=== PATIENT | male | born 1940 | race African-American/Black ===

== ENCOUNTER → 2018-10-05 | Outpatient (CLI) | payer MEDICARE ==
[~2018-10-05] MED LIST: ASPIRIN81 MG PO; ATORVASTATIN CA20 MG PO; CLOPIDOGREL75 MG PO; IRON PO; METOPROLOL SUCC25 MG PO; PANTOPRAZOLE SO40 MG PO
[2018-10-05 17:27] LABS: BASOPHILS # (AUTO) 0.1 (0.0-0.1); BASOPHILS % 0.5 % (0.0-1.0); EOSINOPHILS # (AUTO) 0.4 (0.0-0.4); EOSINOPHILS % 2.9 % (0.0-6.0); HEMATOCRIT 31.5 % (38.2-49.6); HEMOGLOBIN 9.7 g/dL (14.0-18.0); LYMPHOCYTES # (AUTO) 3.5 (1.0-3.2); MEAN CORPUSCULAR HEMOGLOBIN 28.8 pg (28-32); MEAN CORPUSCULAR HGB CONC 30.8 g/dL (31-35); MEAN CORPUSCULAR VOLUME 93.5 fL (81-99); MONOCYTES % 8.1 % (4.4-11.3); NEUTROPHILS # (AUTO) 7.1 (2.1-6.9); NEUTROPHILS % 59.2 % (38.7-80.0); PLATELET COUNT 499 x10e3/uL (140-360); RED BLOOD COUNT 3.37 x10e6/uL (4.3-5.7); RED CELL DISTRIBUTION WIDTH 15.2 % (11.7-14.4)
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
== END ==
LOC: RAD 05:00 → EDSTATUS 10-07 07:30
PROVIDERS: ATTEND Urology
DX: Z01.818 Encounter for other preprocedural examination (principal); Z53.8 Procedure and treatment not carried out for other reasons
CPT/HCPCS: 36415; 71046; 85025

== ENCOUNTER → 2018-11-06 | Day surgery (SDC) | payer MEDICARE ==
[~2018-11-06] MED LIST changes: +CEFTRIAXONE SOD 1 GM/NS 50 ML 50 ML IV ONE; +DEXAMETHASONE SOD PHOS INJ 4 MG/ML VIAL ONE; +HYDRALAZINE HCL 20 MG/ML VIAL ONE; +IOPAMIDOL 610MG/1ML 300 MG/ML VIAL IV ONE; +LIDOCAINE HCL 2% LOCAL INJ 5 ML SDV VIAL INJ ONE; +ONDANSETRON HCL INJ 2MG/ML 2ML 2 MG/ML VIAL ONE; +PROPOFOL IV EMULSION 10 MG/ML 20 ML VIAL ONE; +SEVOFLURANE INHAL SOLN 250 ML PEN BTL ONE
--- OUTSIDE RECORDS SUMMARY | 2018-11-06 05:50 | XMS REPORT | Clinical Summary ---
Author Author [facility] Organization [facility] Address Unknown Phone Unavailable Care Team Providers Care Aids Nurse Name Role Phone Mumtaz Andre MD PCP Allergies No Known Allergies Medications End Date Status Medication Sig Dispensed Refills Start Date Active aspirin (ECOTRIN) 81 MG Take 325 mg 0 enteric coated tablet by mouth daily. Active Problems Problem Noted Date Coronary artery disease 08/21/2017 Coronary artery disease involving [place] coronary artery of [place] heart 08/21/2017 without angina pectoris Overview: Added automatically from request for surgery [id number] Family History Medical History Relation Name Comments Stroke Father Stroke Mother Relation Name Status Comments Father Mother Social History Date Tobacco Use Types Packs/Day Years Used Quit: 08/21/2017 Former Smoker Cigarettes Smokeless Tobacco: Never Used Drinks/Week oz/Week Comments Alcohol Use No Sex Assigned at Date Recorded Not on file Industry Job Start Date Occupation Not on file Not on file Not on file Travel End Travel History Travel Start No recent travel history available. Last Filed Vital Signs Not on file Plan of Treatment Health Maintenance Due Date Last Done Comments SHINGLES VACCINES (#1) 08/29/1989 65+ PNEUMOCOCCAL VACCINE 08/29/2004 (1 of 2 - PCV13) INFLUENZA VACCINE 09/10/2018 Implants Device Identifier Shelf Expiration Date Model / Serial / Lot Implanted Type Area Manufactur er OF 1500L / / Shunt Cor Axius Beating Hrt Long Surgical N/A: N/A [employer] 1.5x20.25mm - [id number] Implantabl Implanted: 08/29/2017 at [facility] (Quantity not on file) or Shunt Extenders OF 2000L / / Shunt Cor Axius Hrt Beating Surgical N/A: N/A [employer] Accessories Long [id number] - Implantabl [id number] Shunts Implanted: 08/29/2017 at [facility] or [facility] (Quantity not on file) Extenders 04/11/2019 [id number] / / Clip Ligating Titanium Medium - Surgical N/A: Chest VESOCCLUDE [id number] Implants; MEDICAL Implanted: Qty: 1 on 08/26/2017 by [employer]; Braulio Hutton Jr., [place] [facility] [facility] [place] Surgical Wires 04/11/2019 [id number] / / Clip Ligating Titanium Medium - Surgical Right: Leg VESOCCLUDE [id number] Implants; MEDICAL Implanted: Qty: 1 on 08/26/2017 by [employer]; Braulio Hutton Jr., [place] [facility]; [facility] Surgical Wires 06/11/2019 [id number] / / Clip Ligating Wide Titanium Small - Surgical N/A: Chest SYMMETRY [id number] Implants; SURGICAL Implanted: Qty: 1 on 08/26/2017 by [employer]; Braulio Hutton Jr., [place] [facility] [place]; [facility] Surgical Wires 06/11/2019 [id number] / / Clip Ligating Wide Titanium Small - Surgical Left: Leg SYMMETRY [id number] Implants; SURGICAL Implanted: Qty: 1 on 08/26/2017 by [employer]; Braulio Hutton Jr., [place] [facility]; [facility] Surgical Wires [id number] / / Marker Grft U-Shaped Styl Rosie Ltxf Surgical N/A: N/A BINU Strl - [id number] Implants; Implanted: 08/29/[address] [facility] (Quantity not on file) Extenders; Surgical Wires [id number] / / Clip Ligating Titanium Medium - Surgical N/A: N/A VESOCCLUDE [id number] Implants; MEDICAL Implanted: 08/29/[address] [facility] (Quantity not on file) Extenders; Surgical Wires [id number] / / Clip Ligating Titanium Medium - Surgical N/A: N/A VESOCCLUDE [id number] Implants; MEDICAL Implanted: 08/29/[address] [facility] (Quantity not on file) Extenders; Surgical Wires [id number] / / Clip Ligating Wide Titanium Small - Surgical N/A: N/A SYMMETRY [id number] Implants; SURGICAL Implanted: 08/29/[address] 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 Operations Manager Advance Directives, 08/21/2017 4:34 PM Living Will and Medical Power of Sr. Operations Manager Advance Directives, 08/21/2017 4:44 PM Living Will and Medical Power of Sr. Operations Manager
--- OUTSIDE RECORDS SUMMARY | 2018-11-06 05:50 | XMS REPORT ---
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 RANDOM (test code=CREATU) mg/dL CBC W/AUTO [id number] 12:18:00* Test Item Value Reference Range Comments WHITE BLOOD CELL (test code=WBC) 15.86 x10 3/uL 4.5-11.0 RED BLOOD CELL (test code=RBC) 2.84 x10 6/uL 4.00-5.60 HEMOGLOBIN (test code=HGB) 8.3 g/dL 12.5-16.9 HEMATOCRIT (test code=HCT) 26.0 % 37.5-50.7 MEAN CELL VOLUME (test code=MCV) 91.5 fL 81.0-99.0 MEAN CELL HGB (test code=MCH) 29.2 pg 27.0-33.0 MEAN CELL HGB CONCETRATION (test code=MCHC) 31.9 g/dL 33.0-37.0 RED CELL DISTRIBUTION WIDTH CV (test code=RDW) 15.0 % 11.5-14.5 RED CELL DISTRIBUTION WIDTH SD (test code=RDW-SD) 50.6 fL 37.0-54.0 PLATELET COUNT (test code=PLT) 316 x10 3/uL 150-400 MEAN PLATELET VOLUME (test code=MPV) 10.9 fL 7.0-9.0 MANUAL DIFF REQUIRED (test code=MDIFF) YES WBC [id number] 12:18:00* Test Item Value Reference Range Comments SEGMENTED NEUTROPHILS (test code=SEG) 89.9 % 37-69 LYMPHOCYTE (test code=LYMPH) 5.5 % 23-55 MONOCYTE (test code=MON) 4.6 % 0-10 ANISOCYTOSIS (test code=ANISO) 2+ TEAR DROP CELLS (test code=TEAR) SEEN OVALOCYTES (test code=OVAL) FEW PLATELET ESTIMATE (test code=PLTEST) Adequate THOUSAND ADEQUATE CBC W/AUTO [id number] 12:15:00* Test Item Value Reference Range Comments WHITE BLOOD CELL (test code=WBC) 15.86 x10 3/uL 4.5-11.0 RED BLOOD CELL (test code=RBC) 2.84 x10 6/uL 4.00-5.60 HEMOGLOBIN (test code=HGB) 8.3 g/dL 12.5-16.9 HEMATOCRIT (test code=HCT) 26.0 % 37.5-50.7 MEAN CELL VOLUME (test code=MCV) 91.5 fL 81.0-99.0 MEAN CELL HGB (test code=MCH) 29.2 pg 27.0-33.0 MEAN CELL HGB CONCETRATION (test code=MCHC) 31.9 g/dL 33.0-37.0 RED CELL DISTRIBUTION WIDTH CV (test code=RDW) 15.0 % 11.5-14.5 RED CELL DISTRIBUTION WIDTH SD (test code=RDW-SD) 50.6 fL 37.0-54.0 PLATELET COUNT (test code=PLT) 316 x10 3/uL 150-400 MEAN PLATELET VOLUME (test code=MPV) 10.9 fL 7.0-9.0 MANUAL DIFF REQUIRED (test code=MDIFF) YES WBC [id number] 12:15:00* Test Item Value Reference Range Comments ANISOCYTOSIS (test code=ANISO) PLATELET ESTIMATE (test code=PLTEST) THOUSAND ADEQUATE CBC W/AUTO [id number] 12:15:00* Test Item Value Reference Range Comments WHITE BLOOD CELL (test code=WBC) 15.86 x10 3/uL 4.5-11.0 RED BLOOD CELL (test code=RBC) 2.84 x10 6/uL 4.00-5.60 HEMOGLOBIN (test code=HGB) 8.3 g/dL 12.5-16.9 HEMATOCRIT (test code=HCT) 26.0 % 37.5-50.7 MEAN CELL VOLUME (test code=MCV) 91.5 fL 81.0-99.0 MEAN CELL HGB (test code=MCH) 29.2 pg 27.0-33.0 MEAN CELL HGB CONCETRATION (test code=MCHC) 31.9 g/dL 33.0-37.0 RED CELL DISTRIBUTION WIDTH CV (test code=RDW) 15.0 % 11.5-14.5 RED CELL DISTRIBUTION WIDTH SD (test code=RDW-SD) 50.6 fL 37.0-54.0 PLATELET COUNT (test code=PLT) 316 x10 3/uL 150-400 MEAN PLATELET VOLUME (test code=MPV) 10.9 fL 7.0-9.0 MANUAL DIFF REQUIRED (test code=MDIFF) YES WBC [id number] 12:15:00* Test Item Value Reference Range Comments ANISOCYTOSIS (test code=ANISO) PLATELET ESTIMATE (test code=PLTEST) THOUSAND ADEQUATE - US RETRO [id number] 11:59:00 Name: MANJIT PINZON : 1940 Age/S: 78 / M [address] [place] [address] Unit #: [id number] Loc: [place] [address] Phys: Rich Jerez MD Acct: [id number] Dis Date: Status: ADM IN PHONE #: [phone] Exam Date: 2018 1147 FAX #: [phone] Reason: POST OBSTRUCTED NEPHROPATHY EXAMS: CPT CODE: [id number] RETRO LTD [id number] Procedure: Renal Ultrasound. Clinical Indication: Post obstructive nephropathy. Comparison: None. TECHNIQUE: Multiple longitudinal and transverse real time sonographic images of the kidneys and urinary bladder are obtained. FINDINGS: KIDNEYS: The right kidney measures 11.4 cm. The left kidney measures 8.2 cm. There is moderate right hydronephrosis. An 8 mm cyst is noted in the midpole cortex of the right kidney. No left hydronephrosis is identified and no nephrolithiasis is observed. BLADDER: A Rosario catheter is present within a nearly empty bladder. The visualized portions of the abdominal aorta, IVC and proximal common iliac arteries are within normal limits. IMPRESSION: 1. Moderate right hydronephrosis. 2. Right renal cyst. 3. Rosario catheter within a nearly empty bladder. SL: CY-H at 1159 Reported and signed by: Saran Bunch M.D. PAGE 1 Signed Report (CONTINUED) Name: MANJIT PINZON : 1940 Age/S: 78 / M [address] [place] [address] Unit #: [id number] Loc: [place] [address] Phys: Rich Jerez MD Acct: [id number] Dis Date: Status: ADM IN PHONE #: [phone] Exam Date: 2018 1146 FAX #: [phone] Reason: POST OBSTRUCTED NEPHROPATHY EXAMS: CPT CODE: [id number] US RETRO LTD [id number] < Continued> CC: Rich Jerez MD Technologist: Ting Kauffman RDMS(OB)(AB) Trnscb Date/Time: 2018 (7403) [email or web address] Orig Print D/T: S: 2018 (4368) Probe: PAGE 2 Signed Report CBC W/AUTO [id number] 08:40:00* Test Item Value Reference Range Comments WHITE BLOOD CELL (test code=WBC) 15.86 x10 3/uL 4.5-11.0 RED BLOOD CELL (test code=RBC) 2.84 x10 6/uL 4.00-5.60 HEMOGLOBIN (test code=HGB) 8.3 g/dL 12.5-16.9 HEMATOCRIT (test code=HCT) 26.0 % 37.5-50.7 MEAN CELL VOLUME (test code=MCV) 91.5 fL 81.0-99.0 MEAN CELL HGB (test code=MCH) 29.2 pg 27.0-33.0 MEAN CELL HGB CONCETRATION (test code=MCHC) 31.9 g/dL 33.0-37.0 RED CELL DISTRIBUTION WIDTH CV (test code=RDW) 15.0 % 11.5-14.5 RED CELL DISTRIBUTION WIDTH SD (test code=RDW-SD) 50.6 fL 37.0-54.0 PLATELET COUNT (test code=PLT) 316 x10 3/uL 150-400 MEAN PLATELET VOLUME (test code=MPV) 10.9 fL 7.0-9.0 LYMPHOCYTE % (test code=LY%) % 14.0-32.0 MANUAL DIFF REQUIRED (test code=MDIFF) COMPREHENSIVE METABOLIC [id number] 08:08:00* Test Item Value Reference Range Comments SODIUM (test code=NA) 137 mEq/L 134-147 POTASSIUM (test code=K) 5.0 mEq/L 3.4-5.0 CHLORIDE (test code=CL) 108 mEq/L 100-108 CARBON DIOXIDE (test code=CO2) 21 mEq/L 21-33 ANION GAP (test code=GAP) 13 0-20 GLUCOSE (test code=GLU) 84 mg/dL 70-110 BLOOD UREA NITROGEN (test code=BUN) 56 mg/dL 7-18 GLOMERULAR FILTRATION RATE (test code=GFR) 13.6 70-80 Units of measure=ml/min/1.73 m2 CREATININE (test code=CREAT) 5.0 mg/dL 0.6-1.3 TOTAL PROTEIN (test code=PROT) 6.5 g/dL 6.4-8.2 ALBUMIN (test code=ALB) 2.30 g/dL 3.4-5.0 CALCIUM (test code=CA) 8.1 mg/dL 8.0-10.5 BILIRUBIN TOTAL (test code=BILT) 0.40 mg/dL 0.0-1.0 SGOT/AST (test code=AST) 13 IUnit/L 15-37 SGPT/ALT (test code=ALT) 19 IUnit/L 15-65 ALKALINE PHOSPHATASE TOTAL (test code=ALKP) 71 IUnit/L 20-125 PROTHROMBIN [id number] 07:24:00* Test Item Value Reference Range Comments PROTHROMBIN TIME PATIENT (test code=PTP) 16.0 SECONDS 9.3-12.9 INTERNATIONAL NORMAL RATIO (test code=INR) 1.4 0.8-1.2 TARGET INR BY INDICATION Indication INR1. Prophylaxis of venous thrombosis 2.0 - 3.0 (orthopedic surgery), Prophylaxis of venous thrombosis (other than high-risk surgery), Treatment of Deep Vein Thrombosis/Pulmonary Embolism, Prevention of systemic embolism - Tissue heart valves, Acute Myocardial Infarction (to prevent systemic embolism), Valvular heart disease, Atrial Fibrillation, Bileaflet mechanical valve in aortic position.2. Mechanical prosthetic valves (high risk), 2.5 - 3.5 Presence of Lupus Anticoagulant or Antiphospholipid Antibodies, Prevention of systemic embolism - Acute Myocardial Infarction (to prevent recurrent infarct). THROMBOPLASTIN TIME [id number] 07:24:00* Test Item Value Reference Range Comments THROMBOPLASTIN TIME PARTIAL (test code=PTT) 34.3 Seconds 25.0-39.5 Therapeutic Range: 50.4 - 88.3 Seconds Effective 05/26/2018
[2018-11-06 09:05] VITALS: BP 162/87
--- NOTE | 2018-11-07 00:49 | Operative Report ---
DATE OF PROCEDURE: 11/06/2018 SURGEON: Matheus Hernandez MD PREOPERATIVE DIAGNOSES: 1. Indwelling right ureteral stent. 2. Right-sided hydronephrosis. POSTOPERATIVE DIAGNOSES: 1. Indwelling right ureteral stent. 2. Right-sided hydronephrosis. PROCEDURES: 1. Cystoscopy and removal of right indwelling stent (entirely separate procedure for right ureteral stent). 2. Right-sided ureteroscopy (entirely separate procedure for right hydronephrosis). 3. Supervision of fluoroscopy for both ureteroscopic and stent removal portions. 4. Interpretation of retrograde pyelography. ANESTHESIA: General. ESTIMATED BLOOD LOSS: Minimal. COMPLICATIONS: None. INDICATIONS: Mr. Augustin is a very pleasant patient with a history of hydronephrosis and stent placement. He and I had a long discussion about alternatives, risks, and benefits of doing nothing, stent removal, ureteroscopy, percutaneous surgery or open surgery. He voiced understanding and elected to proceed with ureteroscopy. DESCRIPTION OF PROCEDURE: Informed consent was obtained, the patient was taken to the operative suite, placed supine on the table, underwent general anesthesia by Anesthesia Service. He was placed in dorsal lithotomy supine position, sterilely prepped and draped in standard fashion for cystoscopy. A 21-Arabic cystoscope was inserted per urethra and normal urethra was noted. Panendoscopy of the bladder revealed no tumors or stones. Both ureteral orifices were in normal anatomic location and position and were seen to efflux clear urine. The stent was removed, it was encrusted. Guidewire was inserted through the stent. Flexible ureteroscope was advanced over the guidewire. There were multiple areas of tortuosity, obtained photographic images of the ureter and no filling defects. There were no tumors. There were no stones. The collecting system was mapped and to drain the fluoroscopy, safety wire was removed. The ureteroscope was withdrawn. The bladder was drained. The patient was awakened from anesthesia and transferred to recovery room in excellent condition. Supervision of fluoroscopy and interpretation of retrograde pyelography: I was present for the entire procedure and supervised fluoroscopy. There was no radiologist present. Retrograde pyelogram was performed with ureteroscope and mapped collecting system. The stent was removed. Matheus Hernandez MD ES/MODL /[id number]
== END | disposition home or self-care (01) ==
LOC: OR 05:41
PROVIDERS: ATTEND Urology
DX: N13.30 Unspecified hydronephrosis (principal); Z46.6 Encounter for fitting and adjustment of urinary device; N40.1 Benign prostatic hyperplasia with lower urinary tract symptoms; N13.8 Other obstructive and reflux uropathy; R33.8 Other retention of urine; N39.0 Urinary tract infection, site not specified; I25.2 Old myocardial infarction; I10 Essential (primary) hypertension; Z79.02 Long term (current) use of antithrombotics/antiplatelets; Z79.82 Long term (current) use of aspirin; Z68.30 Body mass index [BMI] 30.0-30.9, adult
CPT/HCPCS: 52351; 74420; 87086; 87186; J0360; J0696; J1100; J2001; J2405; J2704; Q9967